=== PATIENT | male | born 1960 | race African-American/Black ===

== ENCOUNTER 2023-04-03 06:47 | Emergency (ER) | payer MEDICAID ==
[~2023-04-03] VITALS: Ht 188 cm; Wt 83.9 kg
[~2023-04-03 06:47] MED LIST: CLON1PAT TD; DOCU-270 PO; Folic Acid PO; LISI5TAB24 PO; MORP30TA10 PO; Multivitamins GT; OXYC1TAB8 PO; PANT40VI IV; THIA100T13 PO
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
[2023-04-03] MEDS ORDERED: IBUPROFEN 600 MG TABLET ONE ×3 (07:31→09:17)
[2023-04-03] MEDS ORDERED: HYDROCODONE/APAP 5/325MG TABLET ONE ×3 (07:31→09:16)
[2023-04-03] MEDS ORDERED: LIDOCAINE HCL/PF 1% 30 ML SDV ONE (08:03)
[2023-04-03] MEDS: LIDOCAINE HCL/PF 1% 30 ML VIAL TP ONE (08:49)
[2023-04-03] MEDS: IBUPROFEN 600 MG TABLET PO ONE (09:20)
[2023-04-03] MEDS: HYDROCODONE/APAP 5/325MG TABLET PO ONE (09:20)
[2023-04-03] MEDS ORDERED: OXYC-128 PO (10:34)
[2023-04-03] MEDS ORDERED: IBUP-1953 PO (10:34)
--- NOTE | 2023-04-03 11:00 | NUR ---
WENT TO PT TO GIVE HIM HIS DISCHARGE PAPERS STATED THAT HE CANT SIGN WITH HIS BRACE ON. PT RECIEVED PAIN MEDICATION SO I ASKED HOW HE WAS GOING TO GO HOME IF SOMEONE WAS GOING TO PICK HIM UP, IF HE NEEDED A BUS PASS, OR NEED A PRIVATE AMBULANCE. HE STATED HE WANTED A PRIVATE AMBULANCE AND HE GAVE ME AN ADDRESS THAT DID NOT MATCH ON THE PATIENT DATA DEMOGRAPHICS AND THEN HE GAVE ME A FRIENDS NUMBER THAT HE LIVES WITH [phone], CALLED THREE TIME, NO RESPONSE. PT THEN STATES HE WANTS A PLACE TO SIT IN WHICH HE AMBULATED TO THE WAITING, ROOM. PT LEFT THE EMERGENCY ROOM IN STABLE CONDITION.
--- NOTE | 2023-04-03 11:07 | NUR ---
Patient discharged to home in stable condition. Written and verbal after care instructions given. Patient verbalizes understanding of instruction.
[2023-04-03 11:08] VITALS: BP 117/78; TEMP 98.1; O2SAT 98
== END 2023-04-03 11:08 | disposition home or self-care (01) ==
LOC: ER 06:50
DX: S52.591A Other fractures of lower end of right radius, initial encounter for closed fracture (principal); S70.01XA Contusion of right hip, initial encounter; M20.091 Other deformity of right finger(s); M17.0 Bilateral primary osteoarthritis of knee; R51.9 Headache, unspecified; I10 Essential (primary) hypertension; J45.909 Unspecified asthma, uncomplicated; E11.9 Type 2 diabetes mellitus without complications; Z79.899 Other long term (current) drug therapy; Z88.0 Allergy status to penicillin; V09.9XXA Pedestrian injured in unspecified transport accident, initial encounter; Y93.01 Activity, walking, marching and hiking; Y92.89 Other specified places as the place of occurrence of the external cause; Y99.8 Other external cause status
CPT/HCPCS: 29125; 64450; 70450; 71045; 72192; 73110; 73130; 73503; 73564; 99284; J3490; 73502

== ENCOUNTER 2023-04-16 11:58 | Emergency (ER) | payer MEDICAID, OTHER ==
[~2023-04-16] VITALS: Ht 185.4 cm; Wt 77.1 kg
[~2023-04-16 11:58] MED LIST changes: +IBUP-1953 PO; +OXYC-128 PO
[2023-04-16 12:59] VITALS: BP 139/82; TEMP 98.2; O2SAT 96
[2023-04-16] MEDS ORDERED: IBUPROFEN 600 MG TABLET PO ONE (13:00)
== END 2023-04-16 13:00 ==
LOC: ER 12:00
DX: R07.89 Other chest pain (principal); J45.909 Unspecified asthma, uncomplicated; E11.9 Type 2 diabetes mellitus without complications; Z79.899 Other long term (current) drug therapy; Z86.73 Personal history of transient ischemic attack (TIA), and cerebral infarction without residual deficits; Z60.2 Problems related to living alone; Z88.0 Allergy status to penicillin
CPT/HCPCS: 71045-TC

== ENCOUNTER 2025-03-29 05:25 | Emergency (ER) | payer SELFPAY | END 2025-03-29 05:52 | disposition left against medical advice (07) | LOC: ER 05:30 | DX: Z00.00 Encounter for general adult medical examination without abnormal findings (principal); Z53.21 Procedure and treatment not carried out due to patient leaving prior to being seen by health care provider ==

== ENCOUNTER 2025-04-02 22:05 | Emergency (ER) | payer OTHER | END 2025-04-03 00:02 | disposition left against medical advice (07) | LOC: ER 22:07 | DX: R42 Dizziness and giddiness (principal); Z53.21 Procedure and treatment not carried out due to patient leaving prior to being seen by health care provider ==